=== PATIENT | female | born 1975 | race African-American/Black ===

== ENCOUNTER → 2016-10-09 | Outpatient (CLI) | payer OTHER ==
[2015-09-17 21:59] VITALS: BP 128/69
[~2016-10-09] MED LIST: CEPH-264 PO; DIPH25CA58 PO; PRED20TA PO
--- NOTE | 2016-10-09 17:06 | RAD ---
Pelvic ultrasound Indication: Posterior pelvic pain since Wednesday Technique: Transabdominal and transvaginal Ultrasound pelvis Comparison: None Findings: The uterus measures 8.1 x 6.9 x 6.7 cm with multiple fibroids, the largest measuring 3.6 x 4.1 x 3.6 cm in the posterior uterine body. Endometrial stripe measuring 1.0 cm and is within normal limits. The right ovary measures 4.0 x 2.4 x 2.5 cm with 1.5 x 1.2 cm simple appearing cyst. The right ovary demonstrates evidence of blood flow on color Doppler and spectral waveform. The left ovary measures 4.8 x 3.5 x 2.5 cm with a 3.4 x 3.8 x 2.5 cm cyst demonstrating internal echoes and fishnet appearance. Blood flow is seen in the left ovary and color Doppler and spectral waveform interrogation. No evidence of vascularity in this cyst. Small amount of free fluid. Impression: 1. Fibroid uterus. 2. Left ovarian cyst most likely hemorrhagic. Follow-up ultrasound in 6-8 weeks recommended.
== END | disposition home or self-care (01) ==
LOC: US 15:32
PROVIDERS: ATTEND Advanced Practice Midwife
DX: N83.202 Unspecified ovarian cyst, left side (principal); D25.9 Leiomyoma of uterus, unspecified
CPT/HCPCS: 76830; 76856

== ENCOUNTER 2018-05-15 09:17 | Emergency (ER) | payer OTHER ==
[~2018-05-15] VITALS: Ht 170.2 cm; Wt 95.3 kg
[2018-05-15 09:25] VITALS: BP 126/79
--- NOTE | 2018-05-15 09:56 | PHYS DOC ---
Past Medical History Past Medical History: Hypertension, Other Additional Past Medical Histor: CHF AFTER , NONE SINCE Past Surgical History: Hysterectomy, Tubal ligation, Other Additional Past Surgical Histo: LEFT ARM-HARDWARE Alcohol Use: Occasionally Drug Use: None Adult General Chief Complaint Chief Complaint: Neck Pain HPI HPI Patient is a 43 year old AA female who presents to the ER with complaints of throbbing pain in the right side of her neck since yesterday. She denies any known injury or recent visit to the chiropractor. Patient reports she has been seeing her primary care doctor for over a month for pulsating tinnitus in her right ear. She denies any syncope or dizziness. She denies any nausea, vomiting , abdominal pain, or chest pain. She reports her only history is high blood pressure and she smokes less than a pack of cigarettes a day. Currently she rates pain a 7 out of 10 on the pain scale, she describes it as throbbing and denies any alleviating or aggravating factors. Review of Systems Review of Systems Constitutional: Denies fever or chills [] Eyes: Denies changes HENT: Denies nasal congestion or sore throat; see HPI[] Respiratory: Denies cough or shortness of breath [] Cardiovascular: No additional information not addressed in HPI [] GI: Denies nausea, or vomiting [] Musculoskeletal: See HPI Integument: Denies rash or skin lesions [] Neurologic: Denies headache, focal weakness or sensory changes [] Current Medications Current Medications Current Medications Medications (Trade) Dose Ordered Sig/Fernando Start Time Stop Time Status Last Admin Dose Admin Info (CONTRAST GIVEN -- Rx MONITORING) 1 each PRN DAILY PRN 05/15/18 10:30 05/17/18 10:29 Iohexol (Omnipaque 300 Mg/ml) 75 ml 1X ONCE 05/15/18 10:30 05/15/18 10:31 DC 05/15/18 10:30 75 ML Ondansetron HCl (Zofran) 4 mg 1X ONCE 05/15/18 10:45 05/15/18 10:47 DC 05/15/18 10:44 4 MG Allergies Allergies Allergies Coded Allergies Type Severity Reaction Last Updated Verified No Known Drug Allergies 09/17/15 No Physical Exam Physical Exam Constitutional: Well developed, well nourished, no acute distress, non-toxic appearance. [] HENT: Normocephalic, atraumatic, bilateral external ears normal, bilateral TMs normal, oropharynx moist, nose normal. [] Eyes: conjunctiva normal, no discharge. [] Neck: Normal range of motion, no bony tenderness, supple, no stridor, no bruit, no JVD, Cardiovascular:Heart rate regular rhythm, no murmur [] Lungs & Thorax: Bilateral breath sounds clear to auscultation [] Skin: Warm, dry, no erythema, no rash. [] Extremities: No cyanosis, ROM intact, Neurologic: Alert and oriented X 3, normal motor function, normal sensory function, no focal deficits noted. [] Psychologic: Affect normal, judgement normal, mood normal. [] Current Patient Data Vital Signs Vital Signs Date Time Temp Pulse Resp B/P (MAP) Pulse Ox O2 Delivery O2 Flow Rate FiO2 05/15/18 09:25 98.6 89 18 126/79 (95) 100 Room Air 98.6 Lab Values Laboratory Tests Test 05/15/18 10:24 POC Hemoglobin 13.9 g/dL (12-15) POC Hematocrit 41 % (36-40) H POC Sodium 143 mmol/L (135-145) POC Potassium 3.3 mmol/L (3.5-5.0) L POC Chloride 107 mmol/L (98-110) POC Total CO2 25 mmol/L (23-32) Anion Gap 15 mmol/L (6-14) H POC Blood Urea Nitrogen 11 mg/dL (8-26) POC Creatinine 0.6 mg/dL (0.5-1.4) Glucose Level 81 mg/dL (70-99) POC Ionized Calcium ([place]) 1.17 mmol/L (1.13-1.32) Laboratory Tests 05/15/18 10:24 EKG EKG [] Radiology/Procedures Radiology/Procedures PROCEDURE: CT ANGIOGRAPHY NECK CT angiogram neck with contrast: Reason for examination: Pulsating pain in right side of neck. Helical images were obtained through the neck with intravenous administration of 75 cc Omnipaque 300. 3-D MIPS reconstruction was performed in sagittal and coronal planes. Volume rendered images were obtained. Exposure: One or more of the following individualized dose reduction techniques were utilized for this examination: 1. Automated exposure control 2. Adjustment of the mA and/or kV according to patient size 3. Use of iterative reconstruction technique. No abnormalities are seen at the orbits. The paranasal sinuses show some very minimal mucosal disease posterior medially in the left maxillary antrum. The remaining paranasal sinuses appear to be clear. Mastoid air cells are clear. No abnormality seen at the parotid or submandibular glands. Muscular bundles appear to be symmetric without focal lesions. No abnormality seen at the thyroid gland. The trachea and visualized portion of the esophagus showed no abnormalities. Vocal cords are symmetric. The vallecula and piriform sinuses are symmetric. There are multiple lymph nodes present in the neck in the submandibular, anterior and posterior cervical chains measuring up to 1.8 cm in size. No acute abnormality seen in the cervical spine are of the bone structures. The aortic arch shows no aneurysmal dilatation or dissection. There is normal origin of the right brachiocephalic artery, left common carotid artery and left subclavian arteries from the arch without stenosis. The common carotid arteries, internal carotid arteries and external carotid arteries bilaterally show no stenoses, occlusions or aneurysms. There is normal origin of the vertebral arteries from the respective subclavian arteries with no stenosis or occlusion seen along the course to the basilar artery. IMPRESSION: Multiple lymph nodes bilaterally in the submandibular, anterior and posterior cervical lymph node chains measuring up to 1.8 cm in size. No vascular abnormalities evident. Mild mucosal disease in the left maxillary antrum. [] Course & Med Decision Making Course & Med Decision Making Pertinent Labs and Imaging studies reviewed. (See chart for details) dx: neck pain, hx of pulsatile tinnitus DDX: carotid dissection, lymphadenitis, cervical strain Ct angio was negative for carotid dissection. Pt encouraged to follow up with ENT. Recommend use of flonase nasal spray for relief of tinnitus. Return to ER if sx worsen. Tylenol or ibuprofen prn pain. Patient verbalized an understanding of home care, medications, follow-up, and return to ED instructions and was in agreement with the plan of care. [] Dragon Disclaimer Dragon Disclaimer This electronic medical record was generated, in whole or in part, using a voice recognition dictation system. Departure Departure Impression: Primary Impression: Pulsatile tinnitus of right ear Additional Impression: Cervical pain Disposition: HOME, SELF-CARE Condition: STABLE Referrals: UNKNOWN PCP NAME (PCP) MILA MURPHY MD Patient Instructions: Cervical Sprain, Tinnitus Additional Instructions: Tylenol or ibuprofen as needed for pain. Recommend use of flonase nasal spray, 2 sprays each nare once a day. Follow up with an ENT for further evaluation, return to the ER if symptoms worsen. Problem Qualifiers MORGAN MORE APRN May 15, 2018 09:56
[2018-05-15 10:29] LABS: CREATININE ISTAT 0.6 mg/dL (0.5-1.4); HEMOGLOBIN ISTAT 13.9 g/dL (12-15); ION CA ISTAT 1.17 mmol/L (1.13-1.32); POTASSIUM ISTAT 3.3 mmol/L (3.5-5.0)
[2018-05-15] MEDS ORDERED: IOHEXOL 300 MG/ML 100ML VIAL. IV ONE (10:30)
[2018-05-15] MEDS ORDERED: CONTRAST GIVEN. MC PRN (10:30)
[2018-05-15] MEDS ORDERED: ONDANSETRON PF 4 MG/2 ML VIAL. IV ONE (10:45)
--- NOTE | 2018-05-15 11:53 | RAD ---
CT angiogram neck with contrast: Reason for examination: Pulsating pain in right side of neck. Helical images were obtained through the neck with intravenous administration of 75 cc Omnipaque 300. 3-D MIPS reconstruction was performed in sagittal and coronal planes. Volume rendered images were obtained. Exposure: One or more of the following individualized dose reduction techniques were utilized for this examination: 1. Automated exposure control 2. Adjustment of the mA and/or kV according to patient size 3. Use of iterative reconstruction technique. No abnormalities are seen at the orbits. The paranasal sinuses show some very minimal mucosal disease posterior medially in the left maxillary antrum. The remaining paranasal sinuses appear to be clear. Mastoid air cells are clear. No abnormality seen at the parotid or submandibular glands. Muscular bundles appear to be symmetric without focal lesions. No abnormality seen at the thyroid gland. The trachea and visualized portion of the esophagus showed no abnormalities. Vocal cords are symmetric. The vallecula and piriform sinuses are symmetric. There are multiple lymph nodes present in the neck in the submandibular, anterior and posterior cervical chains measuring up to 1.8 cm in size. No acute abnormality seen in the cervical spine are of the bone structures. The aortic arch shows no aneurysmal dilatation or dissection. There is normal origin of the right brachiocephalic artery, left common carotid artery and left subclavian arteries from the arch without stenosis. The common carotid arteries, internal carotid arteries and external carotid arteries bilaterally show no stenoses, occlusions or aneurysms. There is normal origin of the vertebral arteries from the respective subclavian arteries with no stenosis or occlusion seen along the course to the basilar artery. IMPRESSION: Multiple lymph nodes bilaterally in the submandibular, anterior and posterior cervical lymph node chains measuring up to 1.8 cm in size. No vascular abnormalities evident. Mild mucosal disease in the left maxillary antrum. Electronically signed by: Juana Gandara MD (05/15/2018 11:50 AM) [facility] [place] [facility] [place]
== END 2018-05-15 12:35 | disposition home or self-care (01) ==
LOC: ER 09:17
DX: M54.2 Cervicalgia (principal); H93.11 Tinnitus, right ear; I11.0 Hypertensive heart disease with heart failure; I50.9 Heart failure, unspecified
CPT/HCPCS: 70498; 80047; 96374; 99284; J2405; Q9967

== ENCOUNTER 2020-12-25 11:54 | Emergency (ER) | payer OTHER ==
[~2020-12-25] VITALS: Ht 172.7 cm; Wt 97.0 kg
[~2020-12-25 11:54] MED LIST changes: +FAMO-63 PO; +METH4TAB2 PO
[2020-12-25] MEDS ORDERED: MORPHINE SULFATE 4 MG/ML INJ. IVP ONE (12:45)
[2020-12-25] MEDS ORDERED: IV NORMAL SALINE 1000ML BAG 1,000 ML IV ONE (12:45)
[2020-12-25] MEDS ORDERED: ONDANSETRON PF 4 MG/2 ML VIAL. IVP ONE (12:45)
[2020-12-25 13:12] LABS: BASO # 0.1 x10^3/uL (0.0-0.2); BASO % 1 % (0-3); EOS # 0.1 x10^3/uL (0.0-0.7); EOS % 1 % (0-3); HEMATOCRIT 42.4 % (36.0-47.0); HEMOGLOBIN 14.5 g/dL (12.0-15.5); LYMPH # 1.3 x10^3/uL (1.0-4.8); LYMPH % 14 % (24-48); MEAN CORPUSCULAR HEMOGLOBIN 32 pg (25-35); MEAN CORPUSCULAR HGB CONC 34 g/dL (31-37); MEAN CORPUSCULAR VOLUME 93 fL (79-100); MONO % 11 % (0-9); NEUT # 6.8 x10^3/uL (1.8-7.7); NEUT % 73 % (31-73); PLATELET COUNT 185 x10^3/uL (140-400); RED BLOOD COUNT 4.56 x10^6/uL (3.50-5.40); RED CELL DISTRIBUTION WIDTH 14.5 % (11.5-14.5); WHITE BLOOD COUNT 9.3 x10^3/uL (4.0-11.0)
[2020-12-25 13:13] LABS: BILIRUBIN,URINE NEGATIVE (NEG); CLARITY,URINE CLEAR; COLOR,URINE YELLOW; NITRITE,URINE NEGATIVE (NEG); PROTEIN,URINE NEGATIVE (NEG-TRACE); UROBILINOGEN,URINE 0.2 mg/dL (0.2 mg/dL)
[2020-12-25] MEDS ORDERED: KETOROLAC 15 MG/ML VIAL. IVP ONE (13:15)
[2020-12-25 13:22] LABS: BACTERIA,URINE 0 /HPF (0-FEW); RBC,URINE 0 /HPF (0-2); WBC,URINE 0 /HPF (0-4)
[2020-12-25 13:23] LABS: CALCIUM 8.9 mg/dL (8.5-10.1); CREATININE 0.7 mg/dL (0.6-1.0); GFR 110.5; POTASSIUM 3.4 mmol/L (3.5-5.1)
[2020-12-25 13:28] LABS: ALBUMIN 3.8 g/dL (3.4-5.0); ALBUMIN/GLOBULIN RATIO 0.9 (1.0-1.7); TOTAL BILIRUBIN 0.4 mg/dL (0.2-1.0); TOTAL PROTEIN 8.2 g/dL (6.4-8.2)
[2020-12-25] MEDS ORDERED: IOHEXOL 300 MG/ML 100ML VIAL. IV ONE (13:30)
[2020-12-25] MEDS ORDERED: CONTRAST GIVEN. MC PRN (13:30)
--- NOTE | 2020-12-25 14:41 | RAD ---
Study: CT abdomen/pelvis with intravenous contrast Indication: Abdominal pain. Comparison: None. Technique: Helical CT imaging performed of the abdomen and pelvis after the intravenous administratio n of 75 cc Omnipaque 300 contrast. Sagittal and coronal reformats were obtained. One or more of the following individualized dose reduction techniques were utilized for this examinat ion: 1. Automated exposure control 2. Adjustment of the mA and/or kV according to patient size 3. Use of iterative reconstruction technique. Findings: No significant abnormality seen at the lower chest noting motion. Diffuse hepatic steatosis. No CT manifestations of acute cholecystitis. Nondilated biliary tree. Unre markable pancreas, spleen and adrenal glands. Symmetric renal parenchymal enhancement. No nephrolithi asis or collecting system dilatation. Within normal limits urinary bladder. Heterogeneous attenuation of the uterus with a crescentic area of low attenuation at the anterior aspect of the body/fundus, i mage 71 series 2, with the hypoattenuating portion measuring 4.5 cm transverse by 2.3 cm AP by 3.8 cm craniocaudal. No discrete adnexal abnormality. Small amount of free pelvic fluid anterior to the rec dalia on image 74 series 2 and image 39 series 4. Mild fatty stranding around the uterus. The rectum and sigmoid colon are mostly collapsed. It does not appear as if the pelvic fatty reticula tion relates to the colon. The more proximal colon is within normal limits with a few diverticuli. Un remarkable appendix. No pathologic dilatation of small bowel. Unremarkable stomach. Mild scattered calcified/noncalcified atheromatous plaque. Nonaneurysmal aorta. Lymph node size is wi thin normal limits. No pneumoperitoneum. No acute or aggressive osseous process. Mild early arthrosis at the hips. Impression: 1. Heterogeneous appearance of the uterus with a crescentic area of hypoattenuation along the anteri or aspect of the uterine body/fundus measuring approximately 4.5 x 2.3 x 3.8 cm (image 71 series 2). Small amount of free pelvic fluid and mild stranding of the fat around the uterus. The appearance is somewhat unusual to be entirely explained by physiologic alteration in the reproductive organs in a p remenopausal patient. The uterine heterogeneity could be related to a fibroid though an infectious or inflammatory etiology is not excluded. If there are symptoms referrable to the pelvis consider dedic ated pelvic ultrasound to include transvaginal technique. No potentially acute abnormality elsewhere throughout the abdomen or pelvis. 2. Hepatic steatosis. Electronically signed by: AYANNA FROST MD (12/25/2020 2:39 PM) [facility]
--- NOTE | 2020-12-25 14:57 | PHYS DOC ---
Past Medical History Past Medical History: Hypertension, Other Additional Past Medical Histor: CHF AFTER , NONE SINCE Past Surgical History: Hysterectomy, Tubal ligation, Other Additional Past Surgical Histo: LEFT ARM-HARDWARE, HYSTERECTOMY Smoking Status: Current Every Day Smoker Additional Information: 2 PACKS IN A WEEK Alcohol Use: None Drug Use: None General Adult EDM: Chief Complaint: PELVIC PAIN HPI: HPI: Patient is a 45 year old female who was sent here from urgent care for lower abdominal pain. The patient reports several days of progressive lower abdominal pain, worse in the left lower quadrant. She reports mild nausea but no vomiting. She reports mildly decreased appetite. She denies constipation or diarrhea. She denies urinary symptoms. She has had a hysterectomy, with retention of both ovaries. She denies any vaginal bleeding or discharge. She denies pelvic or abdominal trauma or injury. She denies fevers or chills. UA was performed at urgent care, which was reportedly negative. They were unable to obtain any imaging there, so she is sent here for evaluation. She denies back or flank pain. She denies any radiation of pain. She has not taken any medication today. Review of Systems: Review of Systems: Constitutional: Denies fever or chills. [] Respiratory: Denies cough or shortness of breath. [] Cardiovascular: Denies chest pain or edema. [] GI: Reports lower abdominal pain, worse on the left lower quadrant and left pelvic pain. Reports mild nausea without vomiting. Denies constipation or diarrhea. : Denies urinary symptoms. Denies vaginal discharge or bleeding. Musculoskeletal: Denies back pain or joint pain. [] Integument: Denies rash. [] Neurologic: Denies headache, focal weakness or sensory changes. [] Psychiatric: Anxiety as it pertains to current pain and current illness. [] Heart Score: C/O Chest Pain: No Risk Factors: Risk Factors: DM, Current or recent (<one month) smoker, HTN, HLP, family history of CAD, obesity. Risk Scores: Score 0 - 3: 2.5% MACE over next 6 weeks - Discharge Home Score 4 - 6: 20.3% MACE over next 6 weeks - Admit for Clinical Observation Score 7 - 10: 72.7% MACE over next 6 weeks - Early Invasive Strategies Current Medications: Current Medications Medications (Trade) Dose Ordered Sig/Fernando Start Time Stop Time Status Last Admin Dose Admin Info (CONTRAST GIVEN -- Rx MONITORING) 1 each PRN DAILY PRN 12/25/20 13:30 12/27/20 13:29 Iohexol (Omnipaque 300 Mg/ml) 75 ml 1X ONCE 12/25/20 13:30 12/25/20 13:31 DC 12/25/20 13:40 75 ML Ketorolac Tromethamine (Toradol 15mg Vial) 15 mg 1X ONCE 12/25/20 13:15 12/25/20 13:16 DC 12/25/20 13:23 15 MG Morphine Sulfate (Morphine Sulfate) 4 mg 1X ONCE 12/25/20 12:45 12/25/20 13:02 DC Ondansetron HCl (Zofran) 4 mg 1X ONCE 12/25/20 12:45 12/25/20 12:46 DC 12/25/20 12:58 4 MG Sodium Chloride 1,000 ml @ 1,000 mls/hr 1X ONCE 12/25/20 12:45 12/25/20 13:44 DC 12/25/20 12:57 1,000 MLS/HR Allergies: Allergies: Allergies Coded Allergies Type Severity Reaction Last Updated Verified No Known Drug Allergies 09/17/15 No Physical Exam: PE: Constitutional: Well developed, well nourished, no acute distress, non-toxic appearance. Anxious. Not acutely ill-appearing. HENT: Normocephalic, atraumatic, mucous membranes moist. Eyes: Sclera clear and anicteric. Neck: Trachea midline. Cardiovascular: Tachycardic, regular, +2 dorsalis pedis and +2 radial pulses bilaterally, well-perfused appearing. Lungs & Thorax: Bilateral breath sounds clear to auscultation [] Abdomen: Abdomen is obese, soft, nondistended, normal bowel sounds, diffusely tender to palpation in the lower pelvic area, more tender in the left lower quadrant. No focal right lower quadrant or McBurney's tenderness. Mild voluntary guarding, no rebound tenderness. No palpable mass organomegaly. No CVA tenderness. No flank or abdominal ecchymoses noted. Skin: Warm, dry, no erythema, no rash. [] Back: No tenderness, no CVA tenderness. [] Extremities: No tenderness, no cyanosis, no clubbing, ROM intact, no edema. [] Neurologic: Alert and oriented X 3, normal motor function, normal sensory function, no focal deficits noted. [] Psychologic: Anxious, cooperative and pleasant. [] Current Patient Data: Labs: Laboratory Tests Test 12/25/20 12:03 12/25/20 12:05 12/25/20 12:30 POC Urine HCG, Qualitative Hcg negative (Negative) Urine Collection Type U cath Urine Color Yellow Urine Clarity Clear Urine pH 6.0 (<5.0-8.0) Urine Specific [place] 1.015 (1.000-1.030) Urine Protein Negative mg/dL (NEG-TRACE) Urine Glucose (UA) Negative mg/dL (NEG) Urine Ketones (Stick) Trace mg/dL (NEG) Urine Blood Negative (NEG) Urine Nitrite Negative (NEG) Urine Bilirubin Negative (NEG) Urine Urobilinogen Dipstick 0.2 mg/dL (0.2 mg/dL) Urine Leukocyte Esterase Negative (NEG) Urine RBC 0 /HPF (0-2) Urine WBC 0 /HPF (0-4) Urine Squamous Epithelial Cells Few /LPF Urine Bacteria 0 /HPF (0-FEW) White Blood Count 9.3 x10^3/uL (4.0-11.0) Red Blood Count 4.56 x10^6/uL (3.50-5.40) Hemoglobin 14.5 g/dL (12.0-15.5) Hematocrit 42.4 % (36.0-47.0) Mean Corpuscular Volume 93 fL (79-100) Mean Corpuscular Hemoglobin 32 pg (25-35) Mean Corpuscular Hemoglobin Concent 34 g/dL (31-37) Red Cell Distribution Width 14.5 % (11.5-14.5) Platelet Count 185 x10^3/uL (140-400) Neutrophils (%) (Auto) 73 % (31-73) Lymphocytes (%) (Auto) 14 % (24-48) L Monocytes (%) (Auto) 11 % (0-9) H Eosinophils (%) (Auto) 1 % (0-3) Basophils (%) (Auto) 1 % (0-3) Neutrophils # (Auto) 6.8 x10^3/uL (1.8-7.7) Lymphocytes # (Auto) 1.3 x10^3/uL (1.0-4.8) Monocytes # (Auto) 1.0 x10^3/uL (0.0-1.1) Eosinophils # (Auto) 0.1 x10^3/uL (0.0-0.7) Basophils # (Auto) 0.1 x10^3/uL (0.0-0.2) Sodium Level 138 mmol/L (136-145) Potassium Level 3.4 mmol/L (3.5-5.1) L Chloride Level 101 mmol/L (98-107) Carbon Dioxide Level 25 mmol/L (21-32) Anion Gap 12 (6-14) Blood Urea Nitrogen 10 mg/dL (7-20) Creatinine 0.7 mg/dL (0.6-1.0) Estimated GFR (Cockcroft-Gault) 110.5 BUN/Creatinine Ratio 14 (6-20) Glucose Level 83 mg/dL (70-99) Calcium Level 8.9 mg/dL (8.5-10.1) Total Bilirubin 0.4 mg/dL (0.2-1.0) Aspartate Amino Transferase (AST) 23 U/L (15-37) Alanine Aminotransferase (ALT) 34 U/L (14-59) Alkaline Phosphatase 82 U/L (46-116) Total Protein 8.2 g/dL (6.4-8.2) Albumin 3.8 g/dL (3.4-5.0) Albumin/Globulin Ratio 0.9 (1.0-1.7) L Lipase 58 U/L (73-393) L Laboratory Tests 12/25/20 12:30 Laboratory Tests 12/25/20 12:30 Vital Signs: Vital Signs Date Time Temp Pulse Resp B/P (MAP) Pulse Ox O2 Delivery O2 Flow Rate FiO2 12/25/20 14:24 94 18 132/86 (101) 99 Room Air 12/25/20 12:00 98.3 98.3 EKG: EKG: [] Radiology/Procedures: Radiology/Procedures: IMAGING REPORT Signed PATIENT: SCOTT MOSQUERA FACCOUNT: [id number] : 1975 LOCATION: ER AGE: 45 SEX: F EXAM STATUS: REG ER ORD. PHYSICIAN: ALE BERMAN DO REASON: abdominal pain PROCEDURE: CT ABD PELV W/ IV CONTRST ONLY Study: CT abdomen/pelvis with intravenous contrast Indication: Abdominal pain. Comparison: None. Technique: Helical CT imaging performed of the abdomen and pelvis after the intravenous administration of 75 cc Omnipaque 300 contrast. Sagittal and coronal reformats were obtained. One or more of the following individualized dose reduction techniques were utilized for this examination: 1. Automated exposure control 2. Adjustment of the mA and/or kV according to patient size 3. Use of iterative reconstruction technique. Findings: No significant abnormality seen at the lower chest noting motion. Diffuse hepatic steatosis. No CT manifestations of acute cholecystitis. Nondilated biliary tree. Unremarkable pancreas, spleen and adrenal glands. Symmetric renal parenchymal enhancement. No nephrolithiasis or collecting system dilatation. Within normal limits urinary bladder. Heterogeneous attenuation of the uterus with a crescentic area of low attenuation at the anterior aspect of the body/fundus, image 71 series 2, with the hypoattenuating portion measuring 4.5 cm transverse by 2.3 cm AP by 3.8 cm craniocaudal. No discrete adnexal abnormality. Small amount of free pelvic fluid anterior to the rectum on image 74 series 2 and image 39 series 4. Mild fatty stranding around the uterus. The rectum and sigmoid colon are mostly collapsed. It does not appear as if the pelvic fatty reticulation relates to the colon. The more proximal colon is within normal limits with a few diverticuli. Unremarkable appendix. No pathologic dilatation of small bowel. Unremarkable stomach. Mild scattered calcified/noncalcified atheromatous plaque. Nonaneurysmal aorta. Lymph node size is within normal limits. No pneumoperitoneum. No acute or aggressive osseous process. Mild early arthrosis at the hips. Impression: 1. Heterogeneous appearance of the uterus with a crescentic area of hypoattenuation along the anterior aspect of the uterine body/fundus measuring approximately 4.5 x 2.3 x 3.8 cm (image 71 series 2). Small amount of free pelvic fluid and mild stranding of the fat around the uterus. The appearance is somewhat unusual to be entirely explained by physiologic alteration in the reproductive organs in a premenopausal patient. The uterine heterogeneity could be related to a fibroid though an infectious or inflammatory etiology is not excluded. If there are symptoms referrable to the pelvis consider dedicated pelvic ultrasound to include transvaginal technique. No potentially acute abnormality elsewhere throughout the abdomen or pelvis. 2. Hepatic steatosis. Electronically signed by: AYANNA FROST MD (12/25/2020 2:39 PM) [facility] DICTATED and SIGNED BY: AYANNA FROST MD DATE: 12/25/20 [id number] IMAGING REPORT Signed PATIENT: SCOTT MOSQUERA FACCOUNT: [id number] : 1975 LOCATION: ER AGE: 45 SEX: F EXAM STATUS: REG ER ORD. PHYSICIAN: ALE BERMAN DO REASON: pelvic pain; Abnormal CT scan PROCEDURE: PELVIS W/TV EXAM: ULTRASOUND PELVIS INDICATION: Reason: pelvic pain; Abnormal CT scan / Spl. Instructions: / History: . History of hysterectomy 5 years ago. COMPARISON: CT study performed today. TECHNIQUE: Transabdominal and transvaginal sonography was performed. FINDINGS: Transabdominal sonography: Uterus is surgically absent. The vaginal cuff is unremarkable. Neither ovary is visualized due to overlying bowel gas. Therefore, transvaginal sonography will be performed. Transvaginal sonography: Vaginal cuff is unremarkable. There is a complex cystic and solid mass of the midline of the pelvis measuring 5.6 cm x 4.9 cm x 5.1 cm in size. Internal color Doppler flow is present within it. The complex cystic area within it which may represent blood. This measures 3.7 cm in greatest dimension. This most likely represents a hemorrhagic cyst within the left ovary. There is a small amount of free fluid around it. The right ovary is not visualized due to bowel gas. On the CT study, the right ovary is visualized within the right broad ligament. It appears normal on the CT. There is enlargement of the left ovary with a hypodense mass of the left ovary located within the left broad ligament. The CT finding corresponds to the sonographic finding. IMPRESSION: CT finding corresponds to an enlarged left ovary due to a central complex cystic lesion most likely representing a complex hemorrhagic cyst. This complex cystic lesion measures 3.7 cm in greatest dimension. The largest measurement of the left ovary is 5.6 cm. This may be followed with a transvaginal pelvic ultrasound study in 3 months. Small amount of free fluid is seen around it. Color Doppler flow is seen within the left ovary. Electronically signed by: Qasim Barnes MD (12/25/2020 4:05 PM) [id number] DICTATED and SIGNED BY: QASIM BARNES MD DATE: 12/25/20 [id number] 0 Course & Med Decision Making: Course & Med Decision Making Pertinent Labs and Imaging studies reviewed. (See chart for details) Patient is given IV fluids, IV Zofran, IV Toradol, IV fentanyl. She is resting comfortably. Vital signs are improved, stable. I discussed the findings, differential diagnosis and plan of care with her. Her pain is likely related to complex left ovarian cyst. No evidence of torsion on ultrasound. CT report did mention uterus, though her uterus is surgically absent, so likely what they were commenting on was adnexal/ovarian in etiology. I did give her information for outpatient [facility] follow-up. I told her that she should have a repeat ultrasound done within the next 3 months to assess the cyst. She is comfortable with the plan for discharge home. She is amenable to taking pain medicine and antiemetics on a short-term basis, as needed. No current indication for further imaging, invasive exams or admission at this time. Strict return precautions are given. She is comfortable with this plan, verbalizes understanding of instructions given. Dragon Disclaimer: Dragon Disclaimer: This electronic medical record was generated, in whole or in part, using a voice recognition dictation system. Departure Departure Impression: Primary Impression: Left ovarian cyst Disposition: 01 HOME / SELF CARE / HOMELESS Condition: STABLE Referrals: UNKNOWN PCP NAME (PCP) JER CRUM MD, DONALD G Jr MD WILSON, BRANDI D MD Patient Instructions: Ovarian Cyst Additional Instructions: Use the medication as needed/as directed. You do appear to have an ovarian cyst on your left ovary. There is good blood flow to this ovary. This will need to be followed up by a set decorator, preferably with a repeat ultrasound done within the next 3 months to make sure it is not getting larger. Return to the ER for more severe pain, uncontrolled vomiting, dehydration, temperature 100.4 or higher, acute in changes in pain or any other concerns you might have. Please also follow-up with her primary care physician. Scripts Ondansetron Hcl (ZOFRAN) 4 Mg Tablet 4 MG PO PRN TID PRN for VOMITING, #20 TAB nausea/vomiting Prov: ALE BERMAN DO 12/25/20 Hydrocodone Bit/Acetaminophen (HYDROCODONE-APAP 5-325 ) 1 Tab Tablet 1 TAB PO PRN Q6HRS PRN for PAIN, #20 TAB 0 Refills Prov: ALE BERMAN DO 12/25/20 ALE BERMAN DO Dec 25, 2020 14:56
[2020-12-25] MEDS ORDERED: fentaNYL PF VIAL 100 MCG/2 ML VIAL IVP ONE (15:15)
--- NOTE | 2020-12-25 16:07 | RAD ---
EXAM: ULTRASOUND PELVIS INDICATION: Reason: pelvic pain; Abnormal CT scan / Spl. Instructions: / History: . History of hyste rectomy 5 years ago. COMPARISON: CT study performed today. TECHNIQUE: Transabdominal and transvaginal sonography was performed. FINDINGS: Transabdominal sonography: Uterus is surgically absent. The vaginal cuff is unremarkable. Neither ova ry is visualized due to overlying bowel gas. Therefore, transvaginal sonography will be performed. Transvaginal sonography: Vaginal cuff is unremarkable. There is a complex cystic and solid mass of th e midline of the pelvis measuring 5.6 cm x 4.9 cm x 5.1 cm in size. Internal color Doppler flow is pr esent within it. The complex cystic area within it which may represent blood. This measures 3.7 cm in greatest dimension. This most likely represents a hemorrhagic cyst within the left ovary. There is a small amount of free fluid around it. The right ovary is not visualized due to bowel gas. On the CT study, the right ovary is visualized within the right broad ligament. It appears normal on the CT. Th ere is enlargement of the left ovary with a hypodense mass of the left ovary located within the left broad ligament. The CT finding corresponds to the sonographic finding. IMPRESSION: CT finding corresponds to an enlarged left ovary due to a central complex cystic lesion most likely r epresenting a complex hemorrhagic cyst. This complex cystic lesion measures 3.7 cm in greatest dimens ion. The largest measurement of the left ovary is 5.6 cm. This may be followed with a transvaginal pe lvic ultrasound study in 3 months. Small amount of free fluid is seen around it. Color Doppler flow i s seen within the left ovary. Electronically signed by: Cesar Barnes MD (12/25/2020 4:05 PM) [place] [id number]
[2020-12-25] MEDS ORDERED: ONDA4TAB7 PO (16:27)
[2020-12-25] MEDS ORDERED: HYDR-2761 PO (16:27)
[2020-12-25 16:37] VITALS: BP 118/95
== END 2020-12-25 16:48 | disposition home or self-care (01) ==
LOC: ER 11:54
DX: N83.202 Unspecified ovarian cyst, left side (principal); I11.0 Hypertensive heart disease with heart failure; I50.9 Heart failure, unspecified; F17.200 Nicotine dependence, unspecified, uncomplicated; Z90.710 Acquired absence of both cervix and uterus; Z98.51 Tubal ligation status
CPT/HCPCS: 36415; 74177; 76830; 76856; 80053; 81001; 81025; 83690; 85025; 96361; 96374; 96375; 99285; J1885; J2405; J3010; J7030; Q9967